=== PATIENT | male | born 1960 | race Caucasian/White ===

== ENCOUNTER 2017-12-19 06:27 | Inpatient (IN) ==
[2017-12-19] MEDS ORDERED: Chlorhexidine Gluconate 2% 1 Pack (2 Cloths) TOPICAL ONE (07:26)
[2017-12-19] MEDS ORDERED: Metoprolol Tartrate 25 MG Tablet PO ONE (07:26)
[2017-12-19] MEDS ORDERED: Chlorhexidine 4% Topical 120 APPLIC/120 ML Bottle TOPICAL SCH (07:30)
[2017-12-19] MEDS ORDERED: Bupivacaine/Epi PF 0.25% Inj 20 ML, Bupivacaine Liposo PF 1.3% Inj 20 ML, Sodium Chlor ... P-ARTICULR SCH ×2 (07:30)
[2017-12-19] MEDS ORDERED: Sodium Chlor 0.9% Inj 500 ML IV.SIG SCH (08:00)
[2017-12-19] MEDS ORDERED: TRANEXAMIC ACID IV.SIG SCH (08:00)
[2017-12-19] MEDS ORDERED: ceFAZolin 2 GM Premix Inj 2 GM/50 ML PIGGYBACK IV.SIG SCH (08:00)
[2017-12-19] MEDS ORDERED: SODIUM CHLOR 0.9% IV.SIG SCH (08:00)
[2017-12-19] MEDS ORDERED: Vancomycin Inj 1,000 MG in Sodium Chlor 0.9% Inj 250 ML IV.SIG SCH (08:00)
[2017-12-19] MEDS ORDERED: Temazepam 15 MG Capsule PO PRN (09:32)
[2017-12-19] MEDS ORDERED: Post-op Orders (for Pharmacy) OTHER STA (09:32)
--- NOTE | 2017-12-19 09:34 | P.DCO ---
- Physical Therapy Physical Therapy: Gait training (5 days/week for 2 weeks) Hip: Total hip, Protocol: Left Left Lower Extremity Weight Bearing: Weight bearing as tolerated - Nursing RN: 3 days/week x 2 weeks Dressing changes: Do not change dressing (Unless saturated. If saturated, dry dressing daily) - Certification Need for Home Health services: I have seen patient Kareem Chapin on 12/19/17. My clinical findings support the need for the requested home health care services because: Need for Home Health Services: High risk of falls Homebound Certification: I certify that my clinical findings support that this patient is homebound because: Homebound Certification: Unsteady gait/balance
[2017-12-19] MEDS ORDERED: ceFAZolin 2 GM IV; once IV.SIG ONE (10:26)
[2017-12-19] MEDS ORDERED: HYDROmorphone PF Inj 2 MG/ML Vial ONE (11:14)
[2017-12-19] MEDS ORDERED: Bisacodyl 10 MG Supp RECTAL PRN (12:00)
--- NOTE | 2017-12-19 12:00 | P.OP ---
- Preoperative Diagnosis (1) Osteoarthritis of left hip - Postoperative Diagnosis (1) Osteoarthritis of left hip Date of procedure: 12/19/17 Procedure: Left total hip arthroplasty, direct anterior exposure Anesthesia: GETA Surgeon: Beltran Sullivan MD [employer] Specialist: EVER Manuel Operation and Findings: EBL: 700 cc INDICATION: This patient is a 57-year-old white male with severe arthritis of the left hip. He has findings likely consistent with avascular necrosis with collapse and shortening of the left leg compared to the right. He presents for surgical treatment. NOTE: Alexandra Manuel PA-C was present for the entire surgical procedure as my nurse first aid. In my medical opinion her skill and care was necessary for the proper management of this patient. COMPONENTS: COMPANY: [employer] CUP: [place], 56 mm, 100 series STEM: [place], size 13, high offset HEAD: Ceramic, 36 mm, +1.5, 01/26 taper Polyethylene insert: 36, neutral PROCEDURE: This patient was brought to the operating room and anesthetized in the supine position. The patient was positioned on the [place] table with the operative leg extended and the contralateral leg held position. The hip and leg was scrubbed with alcohol followed by Hibiclens followed by ChloraPrep and draped sterilely in the clean air suite. Preoperative fluoroscopic images were utilized. A templating x-ray was obtained and printed to be used during the case. A timeout was done and antibiotics were given within a routine time window. A 4 inch incision was made starting 2 cm distal and 2 cm lateral to the anterior superior iliac spine. The tensor fascia gini fascia was identified and opened longitudinally in line with the incision. Deep retraction allowed good visualization in the interval between the tensor fascia gini and the rectus and this was opened further. The posterior fascia was opened. Crossing vessels were coagulated appropriately. The anterior aspect of the hip capsule was identified. Retractors were placed above and below the capsule. The capsule was opened longitudinally. Stay sutures were utilized creating flaps for the anterior capsule. The femoral neck was cut at the right location and completed with an oscillating saw. The head and neck was removed and taken to the back table. The leg was externally rotated 60 degrees and traction placed on the extremity. The labrum was excised. A portion of the capsule was excised. Visibility was excellent. Retractors were positioned. Starting 6 mm from the final size reamer, we began reaming up to 1 mm from the anticipated size. This was visualized under fluoroscopy. A trial cup was positioned. This also was visualized under fluoroscopy and minor adjustments were made. The final preparation with a 56 reamer was utilized. The final cup was positioned in approximately 40 degrees of abduction and 20 degrees of forward flexion. This is visualized under fluoroscopy and was seated into the final position. Position was very satisfactory. A single hole eliminator was positioned followed by the plastic liner. The final solution was excellent. Traction was let off. The leg was brought into neutral rotation. A lifting took was positioned underneath the greater trochanter and proximal femur. The leg was maximally X rotated and the foot drop to the floor across midline. Retractors were positioned. A box osteotome was used to gain entrance into the top of the femur. The canal was probed with a finder to ensure that we are within the canal. Successive broaching up to the final stem size was accomplished. Trial reduction showed excellent balancing. Adjustments were made. The wound was irrigated copiously and the canal irrigated. The final stem was inserted in proper orientation. Trial again was trialed and the final head side was impacted. The hip was reduced and with 60 degrees of external rotation the leg to be dropped to the floor without evidence of anterior subluxation. Intraoperative x-rays were obtained. Local anesthesia was utilized for a field block including posterior capsule, inferior capsule, cephalad capsule, region of the greater trochanter, tensor fascia gini and subcutaneous tissue. The anterior capsule was repaired with interrupted #2 Tycron sutures. The fascia was run with 0 PDS on a loop. Subcutaneous tissue was approximated 2-0 Vicryl suture and skin with running intradermal 3-0 Vicryl followed by benzoin and Steri-Strips. A sterile dressing was applied. The patient was awakened and taken to the recovery room in satisfactory condition FINDINGS: There was severe changes of the femoral head likely consistent with avascular necrosis with collapse and remodeling. This may have been long- standing. Severe osteoarthritis was noted. There is no complication appreciated.
--- NOTE | 2017-12-19 12:19 | XR ---
EXAM DATE: 12/19/2017 11:47 AM EST AGE/SEX: 57 years / Male INDICATIONS: Post-op left total hip arthroplasty. CLINICAL DATA: This is the patient's initial encounter. Patient reports that signs and symptoms have been present for 1 day and indicates a pain score of Nonresponsive. MEDICAL/SURGICAL HISTORY: Non-responsive. Non-responsive. COMPARISON: No prior exams available for comparison. FINDINGS: Total hip arthroplasty is in place. The femoral and acetabular components appear intact. There are no signs of loosening or fracture. CONCLUSION: Intact total hip prosthesis for technique. Electronically signed by: Magalis Dee MD 12/19/2017 12:18 PM EST
[2017-12-19] MEDS ORDERED: *morphine SULFATE 10 MG/ML PERIprocedure ONLY ONE (12:46)
[2017-12-19] MEDS ORDERED: *Meperidine Inj 25 MG/ML Vial PERIprocedural Use ONLY ONE (12:46)
[2017-12-19] MEDS ORDERED: fentaNYL Citrate Inj 100 MCG/2 ML Ampul ONE ×2 (12:47)
[2017-12-19] MEDS: Morphine Inj 4 MG/ML Vial IV.PUSH PRN ×2 (14:32→18:56)
[2017-12-19] MEDS: ceFAZolin 1 GM Premix Inj 1 GM/50 ML FROZ.PIGGY IV.SIG SCH ×2 (16:00→21:41)
[2017-12-19] MEDS: Senna/Docusate Sodium 8.6/50 MG Tablet PO SCH (21:42)
[2017-12-19] MEDS: Multivitamin/Minerals Therapeutic Tablet PO SCH (21:43)
[2017-12-20] MEDS: Morphine Inj 4 MG/ML Vial IV.PUSH PRN (00:28)
[2017-12-20] MEDS: ceFAZolin 1 GM Premix Inj 1 GM/50 ML FROZ.PIGGY IV.SIG SCH (03:25)
[2017-12-20 05:53] LABS: Hemoglobin 12.8 gm/dL (13.0-17.0)
[2017-12-20] MEDS ORDERED: FLUTICASONE SALMETEROL INH SCH (09:00)
[2017-12-20] MEDS ORDERED: Pantoprazole Sodium 20 MG DR Tablet PO PRN (09:00)
[2017-12-20] MEDS ORDERED: [UNRECOGNIZED DRUG - OTHER] INH SCH (09:00)
[2017-12-20] MEDS: Senna/Docusate Sodium 8.6/50 MG Tablet PO SCH (09:36)
[2017-12-20] MEDS: Multivitamin/Minerals Therapeutic Tablet PO SCH (09:36)
--- NOTE | 2017-12-20 13:23 | P.PNOP ---
Subjective Interval history: He is doing fairly well. Patient evaluated in joint classroom. Left hip and leg pain but 'as expected'. No new CP or SOB. Urinating well. Ready for discharge home. Physical Exam Vital signs: Vital Signs 12/19/17 13:30 12/19/17 13:33 12/19/17 13:38 Temperature Pulse Rate 75 Respiratory Rate 18 11 L Blood Pressure 165/93 H Pulse Oximetry 96 97 12/19/17 14:00 12/19/17 20:00 12/20/17 00:00 Temperature 97.4 F L 98.1 F 97.8 F Pulse Rate 81 79 71 Respiratory Rate 12 20 20 Blood Pressure 151/77 H 118/80 140/84 Pulse Oximetry 97 93 L 94 L 12/20/17 01:30 12/20/17 04:00 12/20/17 08:00 Temperature 97.9 F 98.2 F Pulse Rate 76 76 Respiratory Rate 17 20 12 Blood Pressure 137/79 141/84 H Pulse Oximetry 97 94 L Intake & Output 12/19/17 12/20/17 12/20/17 18:59 06:59 18:59 Intake Total 1727.97 / 1727.97 820 / 820 1000 / 1000 Output Total 770 / 770 130 / 130 Balance 957.97 / 957.97 690 / 690 1000 / 1000 Weight 129.7 kg Intake: IV 412.97 / 412.97 100 / 100 1000 / 1000 LR 1000 mL Inj 1,000 ML @ 80 1000 / 1000 mls/hr IV.CONT .[id number] [facility] Rx# :[id number] Cyklokapron Inj 1,297 MG In NS 112.97 / 112.97 Inj 100 ML @ 200 mls/hr IV.SIG ONCE [facility] Rx#:[id number] Vancomycin Inj 1,000 MG In NS 250 / 250 Inj 250 ML @ 250 mls/hr 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 [facility] Rx#:[id number] Ancef 1 GM Premix Inj 1 gm In 50 / 50 100 / 100 50 ml @ 100 mls/hr IV.SIG Q6H [facility] Rx#:[id number] Oral 720 / 720 Anesthesia Amount 1300 / 1300 Output: Estimated Blood Loss 700 / 700 Wound Drainage 70 / 70 130 / 130 # 1 Left Hip Hemovac 70 / 70 130 / 130 Other: # Voids 3 Date of Last Bowel Movement 12/18/17 12/18/17 Weight On Admission 129.7 kg Narrative: Sitting up in chair in classroom With his NAD Left LE Hip dressing intact, no drainage, mild warmth, no erythema +motor/sens, +nvi, Neg homans - Constitutional no acute distress Results - Labs CBC & Chem 7: 12/20/17 04:44 Laboratory Results - last 24 hr 12/20/17 04:44 Hgb 12.8 L Hct 37.0 L - Procedures Left total hip arthroplasty, direct anterior approach Assessment and Plan - Ortho Post Op Day # 1 - Assessment and Plan pod#1 s/p L KONRAD, anterior Pain moderately controlled. Ortho stable. Ok to d/c home w [facility] after PT today. Hold dressing changes unless saturated. ASA 81mg bid. [place] for pain. PT - WBAT LLE. Anterior KONRAD precautions. F/U in 2 weeks as scheduled. Needs walker for home use.
--- NOTE | 2017-12-20 13:23 | P.DS ---
Date of admission: 12/19/17 15:58 Primary care physician: No Primary Care Physician Attending physician on discharge: Beltran Sullivan Anticipated date of discharge: 12/20/17 DS: Diagnosis - Discharge Diagnosis (1) Osteoarthritis of left hip Status: Acute DS: Medications - Discharge Medications Prescriptions: aspirin 81 mg PO BID #60 tab hydrocodone-acetaminophen 1 tab PO Q4H PRN #42 tab PRN Reason: Acute Pain DS: Summary Hospital Course: HHC on pod#1 Shira ASA - Time Spent with Patient Total time spent providing and/or coordinating discharge services: Greater than 30 minutes - Quality: VTE Deep Vein Thrombosis/Pulmonary Embolism Present on Admission: No Exam Vital signs: Vital Signs 12/19/17 13:30 12/19/17 13:33 12/19/17 13:38 Temperature Pulse Rate 75 Respiratory Rate 18 11 L Blood Pressure 165/93 H Pulse Oximetry 96 97 12/19/17 14:00 12/19/17 20:00 12/20/17 00:00 Temperature 97.4 F L 98.1 F 97.8 F Pulse Rate 81 79 71 Respiratory Rate 12 20 20 Blood Pressure 151/77 H 118/80 140/84 Pulse Oximetry 97 93 L 94 L 12/20/17 01:30 12/20/17 04:00 12/20/17 08:00 Temperature 97.9 F 98.2 F Pulse Rate 76 76 Respiratory Rate 17 20 12 Blood Pressure 137/79 141/84 H Pulse Oximetry 97 94 L Intake & Output 12/19/17 12/20/17 12/20/17 18:59 06:59 18:59 Intake Total 1727.97 / 1727.97 820 / 820 1000 / 1000 Output Total 770 / 770 130 / 130 Balance 957.97 / 957.97 690 / 690 1000 / 1000 Weight 129.7 kg Intake: IV 412.97 / 412.97 100 / 100 1000 / 1000 LR 1000 mL Inj 1,000 ML @ 80 1000 / 1000 mls/hr IV.CONT .[id number] [facility] Rx# :[id number] Cyklokapron Inj 1,297 MG In NS 112.97 / 112.97 Inj 100 ML @ 200 mls/hr IV.SIG ONCE [facility] Rx#:[id number] Vancomycin Inj 1,000 MG In NS 250 / 250 Inj 250 ML @ 250 mls/hr IV.SIG CYTOGENETIC TECHNOLOGIST CARMINE Rx#:[id number] Ancef 1 GM Premix Inj 1 gm In 50 / 50 100 / 100 50 ml @ 100 mls/hr IV.SIG Q6H [facility] Rx#:[id number] Oral 720 / 720 Anesthesia Amount 1300 / 1300 Output: Estimated Blood Loss 700 / 700 Wound Drainage 70 / 70 130 / 130 # 1 Left Hip Hemovac 70 / 70 130 / 130 Other: # Voids 3 Date of Last Bowel Movement 12/18/17 12/18/17 Weight On Admission 129.7 kg Results Procedures completed during hospitalization: Left total hip arthroplasty, direct anterior approach Labs on day of discharge: Labs from last 24 hours 12/20/17 04:44 Hgb 12.8 L Hct 37.0 L - Impressions ITS Impressions Hip X-Ray 12/19/17 00:00 CONCLUSION: Intact total hip prosthesis for technique. Discharge Plan - Discharge Order Discharge Orders: Discharge Order (Routine); Ordered 12/20/17 Ordered By: Beltran Sullivan - Discharge Details Anticipated Discharge Date: 12/20/17 - Physicians Team Primary Care Provider: Primary Megan Hernandez Attending Provider: Beltran Sullivan Other Providers: [facility] - Rxs /Orders / Referrals /Forms Prescriptions: New aspirin 81 mg Tablet,Chewable 81 mg PO BID Qty: 60 RF: 0 hydrocodone-acetaminophen 7.5-325 mg Tablet 1 tab PO Q4H PRN (Reason: Acute Pain) Qty: 42 RF: 0 Continue fluticasone-salmeterol [Advair HFA] 45-21 mcg/actuation Hfa Aerosol Inhaler 2 puff INHALATION DAILY glucosamine sulfate [Glucosamine] 500 mg Tablet 500 mg PO BID omeprazole magnesium [Prilosec OTC] 20 mg Tablet,Delayed Release (Dr/Ec) 20 mg PO DAILY PRN (Reason: Indigestion) Discontinued aspirin [Aspirin Low Dose] 81 mg Tablet,Delayed Release (Dr/Ec) 81 mg PO DAILY Ambulatory Orders / Order Sets / DME: Adjustable Commode 3-in-1 (1 each) (Routine) Location: Determined by Patient Ordered By: Beltran Sullivan Walker With Front Wheels (1 each) (Routine) Location: Determined by Patient Ordered By: Beltran Sullivan Referrals: Primary Care Megan Steele [Primary Care Provider] - See Instructions
[2017-12-20] MEDS ORDERED: Influenza (Quadrivalent) Vaccine 0.5 ML Syringe IM ONE (17:00)
== END 2017-12-20 17:10 | disposition home health service (06) ==
LOC: HSDC 06:27 → EDSTATUS 09:00 → N06 15:58
PROVIDERS: ADMIT Orthopaedic Surgery Orthopaedic Surgery of the Spine; ATTEND Orthopaedic Surgery Orthopaedic Surgery of the Spine